=== PATIENT | male | born 1980 | race Two or more races ===

== ENCOUNTER 2018-02-02 18:18 | Emergency (ER) | payer BC ==
[~2018-02-02] VITALS: Ht 188 cm; Wt 108.2 kg
[2018-02-02 18:41] LABS: HEMATOCRIT 45.5 % (38.0-50.0); HEMOGLOBIN 15.5 G/DL (12.5-16.6); MCH 26.6 PG (29.0-34.0); MCHC 34.1 G/DL (30.0-36.0); PLATELET COUNT 241 K/uL (156-360); RBC DIS.WIDTH-CV 12.9 % (11.8-14.6); RBC DIS.WIDTH-SD 36.1 % (39-53); RED BLOOD COUNT 5.83 M/uL (4.00-5.50); WHITE BLOOD COUNT 8.4 K/uL (4.1-10.2)
[2018-02-02 18:53] LABS: CHLORIDE 108 mEq/L (99-109); SODIUM 144 mEq/L (136-147)
[2018-02-02 18:55] LABS: GLUCOSE 136 mg/dL (70-99)
[2018-02-02 18:59] LABS: CREATININE 1.4 mg/dL (0.6-1.3)
[2018-02-02 19:00] LABS: UREA NITROGEN (BUN) 21 mg/dL (9-23)
[2018-02-02 19:02] LABS: GFR ESTIMATE (CALCULATED) > 59 mL/min/ (58.99-99999)
[2018-02-02 19:03] LABS: APPEARANCE SL.HAZY ((CLEAR)); BILIRUBIN NEGATIVE; BLOOD LARGE; COLOR YELLOW ((YELLOW)); GLUCOSE (STRIP) NEGATIVE; KETONES NEGATIVE; LEUKOCYTES NEGATIVE; NITRITE NEGATIVE; PROTEIN (STRIP) 100; SPECIFIC GRAVITY 1.027 (1.000-1.030); UROBILINOGEN 0.2 MG/DL (0.2-1.0)
[2018-02-02 19:17] LABS: BACTERIA NONE SEEN /HPF; EPITHELIAL CELLS RARE /HPF; MUCUS TRACE /LPF; RED BLOOD CELLS TNTC /HPF (0-5); UCUL ADDED? YES; WHITE BLOOD CELLS 0-5 /HPF (0-5)
[2018-02-03] MEDS ORDERED: NORCO 5/3251 TABLET PO (00:52)
[2018-02-03] MEDS ORDERED: FLOMAX0.4 MG PO (00:52)
[2018-02-03] MEDS ORDERED: ZOFRAN4 MG PO (00:52)
[2018-02-03 01:18] VITALS: BP 120/93
== END 2018-02-03 01:23 | disposition home or self-care (01) ==
LOC: EXP 18:18 → EME 18:18 → EXP 02-03 01:23
DX: N20.1 Calculus of ureter (principal); R31.9 Hematuria, unspecified; Z87.442 Personal history of urinary calculi
CPT/HCPCS: 74176; 80048; 81003; 85027; 87086; 99281; 99284